=== PATIENT | female | born 1985 | race Caucasian/White ===

== ENCOUNTER 2017-02-22 14:39 | Emergency (ER) | payer MEDICAID ==
[~2017-02-22 14:39] MED LIST: FAMOTIDINE20 M3 PO; FLEXERIL10 MG PO; HYDROCODONE PO; IBUPROFEN800 M1 PO; NITROFURANTOIN100 M3 PO; NO MEDICATIONS; NORCO 5-325 TA1 EACH PO; NORCO 5/325 TAB1 TAB PO; OMEPRAZOLE20 M3 PO; PEN-VEE K500 MG; PEPCID20 MG PO; PERCOCET 5-3251 EACH PO; PERCOCET 5/3251 TAB PO; PRENACARE TABL1 EACH PO; PRENATAL MULTI1 EAC5 PO; PRENATAL VITAMI1 TAB; PRILOSEC OTC20 MG; ROCEPHIN IM; TUMS500 M1 PO; TUMS500 MG PO; TYLENOL500 MG PO; VIBRAMYCIN100 MG PO; VICODIN 5/500 T1 TAB; VISTARIL50 MG; VITAMIN D50000 UNI2 PO; ZOLOFT50 M1 PO; ZOLOFT50 MG
[2017-02-22] MEDS ORDERED: NO HOME MEDICATION XX (16:17)
[2017-02-22 17:59] LABS: BASO % 0.5 % (0-2); EOS % 3.8 % (0-7); EOSINOPHIL ABSOLUTE COUNT 0.3 tho/cmm (0.0-0.7); HGB-HEMOGLOBIN 14.4 gm/dl (12.0-15.5); IMMATURE GRANULOCYTES ABSOLUTE 0.01 tho/cmm (0-0.03); IMMATURE GRANULOCYTES PERCENT 0.1 % (0-0.3); LYMPH % 32.2 % (20-45); LYMPH ABSOLUTE COUNT 2.6 tho/cmm (0.8-4.5); MCH (MEAN CORPUSCULAR HGB) 30.1 pg (28.0-32.0); MCHC MEAN CORPUSCULAR HGB CONC 35.1 % (32.0-36.0); MCV (MEAN CELL VOLUME) 85.6 fl (82.0-96.0); MEAN PLATELET VOLUME 10.1 cmc (9.4-12.4); MONO % 6.2 % (0-12); MONOCYTE ABSOLUTE COUNT 0.5 tho/cmm (0.0-1.2); NEUTROPHIL ABSOLUTE COUNT 4.7 tho/cmm (1.6-8.0); NEUTROPHIL-AUTOMATED 4.7 tho/cmm (1.6-8.0); NEUTROPHILS % 57.2 % (40-80); PLATELET COUNT 230 tho/cmm (150-450); RED BLOOD COUNT 4.79 mil/cmm (4.00-5.20); RED CELL DISTRIBUTION WIDTH 12.7 % (12.4-16.4); WHITE BLOOD COUNT 8.2 tho/cmm (4.0-10.0)
[2017-02-22 18:14] LABS: ALBUMIN 3.5 g/dl (3.5-5.0); ALKALINE PHOSPHATASE 71 U/L (33-138); ALT/SGPT 25 U/L (12-78); ANION GAP 12 mmol/L (0-20); AST/SGOT 14 U/L (10-40); BILIRUBIN,TOTAL 0.6 mg/dl (0-1.5); BLOOD UREA NITROGEN 8 mg/dl (6-24); CALCIUM 8.8 mg/dl (8.5-10.5); CARBON DIOXIDE-VENOUS 24 mmol/L (22-32); CHLORIDE 109 mmol/l (96-110); CREATININE 0.81 mg/dl (0.50-1.10); GLUCOSE 80 mg/dL (70-110); LIPASE 110 U/L (73-393); POTASSIUM 3.9 mmol/L (3.7-5.1); SODIUM 141 mmol/L (135-145); eGFR VALUE FOR BLACK >90 mL/Min
[2017-02-22 18:18] LABS: URINE APPEARANCE CLEAR; URINE BILIRUBIN NEGATIVE (NEG); URINE BLOOD NEGATIVE (NEG); URINE COLOR YELLOW; URINE GLUCOSE (UA) NEGATIVE (NEG); URINE KETONE SMALL (NEG); URINE LEUKOCYTE ESTERASE NEGATIVE (NEG); URINE NITRITE NEGATIVE (NEG); URINE PROTEIN NEGATIVE (NEG)
[2017-02-22] MEDS ORDERED: HYOSCYAMINE0.375 M3 PO (21:16)
[2017-02-22] MEDS ORDERED: ZOFRAN4 M2 PO (21:16)
== END 2017-02-22 21:22 ==
LOC: EDMED 14:39
PROVIDERS: Nurse Practitioner Family
DX: R11.2 Nausea with vomiting, unspecified (principal); R10.11 Right upper quadrant pain; R10.12 Left upper quadrant pain; R19.7 Diarrhea, unspecified; Z88.5 Allergy status to narcotic agent; Z98.890 Other specified postprocedural states; Z87.42 Personal history of other diseases of the female genital tract; Z90.722 Acquired absence of ovaries, bilateral; Z87.891 Personal history of nicotine dependence
CPT/HCPCS: J1170; J1200; J2405; J7030; Q9967